=== PATIENT | female | born 1985 | race Caucasian/White ===

== ENCOUNTER 2022-02-26 13:36 | Inpatient (IN) ==
[2022-02-26] MEDS ORDERED: OXYTOCIN 30 UNITS/500 ML BAG IV PRN ×2 (15:28→19:13)
--- NOTE | 2022-02-26 15:28 | History & Physical Report ---
Date of Service February 26, 2022 Assessment & Plan (1) SROM (spontaneous rupture of membranes): Plan: 36 y/o G1 at 40w2d admitted w/ SROM VSS Fetus cat 1 SROM - will let pt ambulate for few hours, recheck. Consider pit if not starting to make some change GBS neg Epidural PRN History of Present Illness Chief Complaint: LOF Primary Care Provider: NO PCP 36 y/o 1 at 40 2/7 wga presents w/ c/o LOF since 11AM. +FM and occ ctx, denies VB PNI: AMA Past [employer] Hx: G1 q25d cycles 07/2021 neg cotest, hx colpo 10 yrs ago denies hx STIs Allergies Allergy/AdvReac Type Severity Reaction Status Date / Time cefaclor [From [facility]] Allergy hives, eye Verified 02/24/22 14:48 swelling Sulfa (Sulfonamide Allergy hives, eye Verified 02/24/22 14:48 Antibiotics) swelling Home Medications Medication Instructions Recorded Confirmed Type prenat.vits,chucky,[id number] 1 tab PO DAILY 07/12/21 02/24/22 History breast pump #1 ea 12/03/21 02/24/22 Rx ferrous sulfate PO 12/17/21 02/24/22 History Patient History Medical History (Updated 02/26/22 @ 15:27 by Sharon Bradley MD) Asthma History of chicken pox Surgical History History of colposcopy S/P tonsillectomy Family History Grandmother (Maternal) Breast cancer Grandfather (Maternal) Dementia Father Diabetes Denies family history of Ovarian cancer Colorectal cancer Social History Smoking Status: Never smoker Hx Alcohol Use: No Preferred Language: Sami Communication Ability: Effective Tso Required: No Beliefs That Will Affect Care: None marital status: Single marital status details: destinee Cyr(42) [phone] Current Living Situation: Significant Other Current Living Situation Comment: lives with peggy, dog current occupational status: employed current occupation: [employer] Other Information That Helps Us Care for You: No Feels Safe at Home: Yes Physical Exam Genitourinary: OB Exam Abdomen: + vertex (confirmed by bsus) and + estimated weight (7-8lbs) Manual OB Exam: + cervical dilation 1 cm, + cervical effacement 50%, + station -2 and + amniotic fluid (amnisure positive) OB Exam Monitor Tracing: + external FHT monitor used, + external uterine monitor used (irreg ctx) and + category I (125/mod/+accel/-decel) Results & Data ([facility]) Vital Signs (Past 12 Hours) Vital Signs Pulse BP 02/26/22 15:04 77 110/74 Laboratory Results OB Labs: Blood Type A Positive 07/19/21 Antibody Screen NEGATIVE 07/19/21 Hemoglobin 10.7 g/dL (12.0-16.0) L 12/03/21 Hematocrit 33.3 % (37-47) L 12/03/21 Mean Corpuscular Volume 84.8 fL (80-100) 07/19/21 Platelet Count 191 K/uL (130-400) 07/19/21 Rubella IgG Antibody Immune (Immune) 07/19/21 Rapid Plasma Reagin Nonreactive (Nonreactive) 07/19/21 Hepatitis B Surface Antigen Neg (Neg) 07/19/21 HIV (1&2) Ab and P24 Ag, 4th Gener Neg (Neg) 07/19/21 Glucose 1 Hour 50 gm Load 103 mg/dl (70-130) 12/03/21 OB Optional Labs: Chlamydia trachomatis RNA Not Detected (Not Detected) 07/19/21 Neisseria gonorrhoeae RNA Not Detected (Not Detected) 07/19/21 Labs Reviewed: cf DNA low risk cf/sma negative msafp declines gbs neg Diagnostic Findings posterior plac Coding Level of Care Code None Diagnoses SROM (spontaneous rupture of membranes)
[2022-02-26 15:57] LABS: Mean Corpuscular Hgb Conc 32.7 g/dL (32-36)
[2022-02-26 16:21] LABS: Hemoglobin 12.1 g/dL (12.0-16.0); Mean Corpuscular Hemoglobin 27.9 pg (25-34); Mean Corpuscular Volume 85.3 fL (80-100); RDW Coefficient of Variation 15.8 % (11.5-14.5); RDW Standard Deviation 49.8 fL (36.4-46.3); Red Blood Count 4.34 M/uL (4.2-5.4)
[2022-02-26 16:24] LABS: Mean Platelet Volume 12.9 fL (7.4-10.4); Platelet Count 133 K/uL (130-400)
[2022-02-26 16:25] LABS: Platelet Estimate Normal (Normal)
--- NOTE | 2022-02-26 19:16 | Labor Progress Brief Note ---
Date of Service February 26, 2022 Subjective Ctx stronger but still far apart Assessment & Plan (1) SROM (spontaneous rupture of membranes): Plan: 36 y/o G1 at 40w2d admitted w/ SROM VSS Fetus cat 1 SROM - SVE unchanged, discussed risks vs benefits of pit and pt amenable. has not really eaten at all today so will allow small meal and start then GBS neg Epidural PRN Admission and Anticipated Discharge Date Admission Date: February 26, 2022 Physical Exam Genitourinary: Manual OB Exam: + cervical dilation 1 cm, + cervical effacement 50% and + station -2 OB Exam Monitor Tracing: + external FHT monitor used, + external uterine monitor used (q4-6) and + category I (125/mod/+accel/-decel) Results & Data ([facility]) Vital Signs (Past 12 Hours) Vital Signs Temp Pulse Resp BP 02/26/22 19:08 79 110/70 02/26/22 18:33 98.2 F 18 02/26/22 18:29 82 135/74 02/26/22 16:03 18 02/26/22 15:04 77 110/74 Coding Level of Care Code None Diagnoses SROM (spontaneous rupture of membranes)
[2022-02-26] MEDS: LACTATED RINGER'S 1,000 ML IV PRN (20:45)
[2022-02-26] MEDS ORDERED: BUPIVACAINE 0.25% 30 ML VIAL ONE (22:19)
[2022-02-26] MEDS ORDERED: SODIUM CHLORIDE 0.9% INJ 10 ML VIAL ONE (22:19)
[2022-02-26] MEDS ORDERED: fentaNYL citrate 100 MCG/2 ML VIAL ONE (22:19)
[2022-02-26] MEDS ORDERED: ePHEDrine sulfate 50 MG/ML AMP ONE (22:19)
[2022-02-26] MEDS ORDERED: fentaNYL 2MCG/ML ROPIVACAINE 1.25MG/ML 100 ML BAG EPI ONE (22:20)
[2022-02-26] MEDS ORDERED: ePHEDrine sulfate 50 MG/ML AMP IV PRN (22:27)
[2022-02-26] MEDS ORDERED: NALBUPHINE HCL INJ 10 MG/ML AMP IV PRN (22:27)
[2022-02-26] MEDS ORDERED: NALOXONE HCL 1 MG in SODIUM CHLORIDE 0.9% 1000ML 1,000 ML IV PRN (22:27)
[2022-02-26] MEDS ORDERED: ONDANSETRON INJ 2 MG/ML 2 ML VIAL IV PRN (22:27)
[2022-02-26] MEDS ORDERED: NALOXONE HCL 0.4 MG/1 ML VIAL/CARP IV PRN (22:27)
[2022-02-26] MEDS ORDERED: fentaNYL 2MCG/ML ROPIVACAINE 1.25MG/ML 100 ML BAG EPI PRN (22:27)
[2022-02-26] MEDS ORDERED: diphenhydrAMINE 50 MG/ML VIAL IV PRN (22:27)
--- NOTE | 2022-02-26 22:28 | Anesthesiology Consultation ---
Date of Service February 26, 2022 Assessment & Plan ASA ASA2 Proposed Anesthesia Anesthesia Type: General and Labor Epidural Risk / Benefits Reviewed With: PT / POA / Parent / Guardian, Accepts Plan and Informed Consent Obtained History Height/Weight Height: 5 ft 4 in Weight: 91.172 kg Allergies Allergy/AdvReac Type Severity Reaction Status Date / Time cefaclor [From [facility]] Allergy hives, eye Verified 02/24/22 14:48 swelling Sulfa (Sulfonamide Allergy hives, eye Verified 02/24/22 14:48 Antibiotics) swelling Medications Home Medications Medication Instructions Recorded Confirmed Last Taken prenat.vits,chucky,[id number] 1 tab PO DAILY 07/12/21 02/26/22 1 Day Ago ~02/25/22 breast pump #1 ea 12/03/21 02/24/22 Unknown ferrous sulfate 27 mg iron tablet 27 mg PO DAILY 02/26/22 02/26/22 02/26/22 0800 Active Medications Generic Name Dose Route Start Last Admin Trade Name Freq PRN Reason Stop Dose Admin Lactated Ringer's 1,000 mls @ 125 mls/hr 02/26/22 15:28 02/26/22 20:45 Lr IV 02/28/22 15:27 125 mls/hr .Q8H PRN Administration L&D Protocol Protocol Oxytocin 30 units in 500 mls @ 4 mls/hr 02/26/22 19:13 02/26/22 21:30 Pitocin IV 02/28/22 19:12 0.24 units/hr .Q24H PRN 4 mls/hr Labor Induction/Augmentation Titration Protocol 0.24 UNITS/HR Past Medical History Medical History (Updated 02/26/22 @ 15:27 by Sharon Bradley MD) Asthma History of chicken pox Exercise / Class Metabolic Activity II 4-5 Yardwork/Stairs/Walk up hill Past Family History Family History Grandmother (Maternal) Breast cancer Grandfather (Maternal) Dementia Father Diabetes Denies family history of Ovarian cancer Colorectal cancer Past Surgical History Surgical History History of colposcopy S/P tonsillectomy Past Anesthesia History No Hx of Anesthesia Complications and No Family Hx of Anesthesia Complications History of PONV No Hx of PONV and No Hx of Motion Sickness Social History Smoking Status: Never smoker Hx Alcohol Use: No Hx Substance Use: No Review of Systems denies fever/cough/ colds/ chest pain/ SOB/ DANITA denies DANITA Physical Exam Vital Signs Last Vital Signs Temp 37.0 C 02/26/22 21:30 Pulse 69 02/26/22 22:55 Resp 18 02/26/22 21:30 BP 99/62 L 02/26/22 22:55 Pulse Ox 97 02/26/22 22:52 ENMT Mouth: no TMJ abnormality and no dentition abnormality Thyromental Distance: > or= 3.5 Finger Breadths Mallampati Class: II Neck neck extension not limited Respiratory normal respiratory effort; no respiratory distress Auscultation: lungs clear to auscultation bilaterally Cardiovascular Rate/Rhythm: regular rate and regular rhythm Neurologic moves all extremities Psychiatric Orientation: alert and oriented x 3 Testing Laboratory Results 02/26/22 15:40
--- NOTE | 2022-02-27 00:44 | Labor Progress Brief Note ---
Date of Service February 27, 2022 Subjective comfortable w/ epidural Assessment & Plan (1) SROM (spontaneous rupture of membranes): Plan: 36 y/o G1 at 40w2d admitted w/ SROM VSS Fetus cat 1 SROM - starting to make progress, cervix thinned out nicely and station has progressed. Pit at 10, continue augmentation GBS neg Epidural in place Admission and Anticipated Discharge Date Admission Date: February 26, 2022 Physical Exam Genitourinary: Manual OB Exam: + cervical dilation (2-3), + cervical effacement 80% and + station -2 (descent noted from prior exam) OB Exam Monitor Tracing: + external FHT monitor used, + external uterine monitor used (q3-4) and + category I (125/mod/+accel/-decel) Results & Data ([facility]) Vital Signs (Past 12 Hours) Vital Signs Temp Pulse Resp BP Pulse Ox 02/27/22 00:37 74 97 02/27/22 00:32 74 97 02/27/22 00:30 71 108/55 L 02/27/22 00:27 72 96 02/27/22 00:22 79 97 02/27/22 00:17 72 96 02/27/22 00:15 75 108/56 L 02/27/22 00:12 83 97 02/27/22 00:07 83 98 02/27/22 00:02 79 97 02/27/22 00:01 75 107/59 L 02/27/22 00:00 18 02/26/22 23:57 72 97 02/26/22 23:52 75 96 02/26/22 23:47 74 128/67 97 02/26/22 23:42 76 97 02/26/22 23:37 78 96 02/26/22 23:32 83 97 02/26/22 23:31 77 112/58 L 02/26/22 23:30 18 02/26/22 23:27 79 97 02/26/22 23:22 82 97 02/26/22 23:17 84 97 02/26/22 23:16 77 116/64 02/26/22 23:12 83 98 02/26/22 23:07 83 97 02/26/22 23:02 79 98 02/26/22 23:00 98.1 F 76 18 103/60 02/26/22 22:57 75 99 02/26/22 22:55 69 99/62 L 02/26/22 22:52 71 97 02/26/22 22:51 74 120/58 L 02/26/22 22:48 75 119/79 02/26/22 22:47 73 99 02/26/22 22:41 80 99 02/26/22 22:36 75 100 02/26/22 22:19 67 118/72 02/26/22 21:48 72 116/68 02/26/22 21:30 98.6 F 18 02/26/22 21:18 77 109/72 02/26/22 20:48 81 116/66 02/26/22 19:08 79 110/70 02/26/22 19:05 97.3 F L 18 02/26/22 18:33 98.2 F 18 02/26/22 18:29 82 135/74 02/26/22 16:03 18 02/26/22 15:04 77 110/74 Coding Level of Care Code None Diagnoses SROM (spontaneous rupture of membranes)
[2022-02-27] MEDS: LACTATED RINGER'S 1,000 ML IV PRN ×3 (01:12→12:14)
[2022-02-27] MEDS ORDERED: SODIUM CHLORIDE 0.9% 250 ML IV PRN (11:59)
[2022-02-27] MEDS ORDERED: GENTAMICIN CONSULT ACTIVE PRN (11:59)
--- NOTE | 2022-02-27 12:11 | Procedure Note ---
Procedure Note Date of Service February 27, 2022 Note Pt was verbally consented for attempt at operative vaginal delivery with vacuum with risks discussed including intracranial and subgaleal hemorrhage, abrasion, retinal hemorrhage. Also discussed risk of bladder, vaginal canal injury. Pt desires to attempt. Bladder was attempted to be emptied however no urine could be drained due to station. head was palpated at +2 station in ROP position. Vacuum was applied at the flexion point and pressure increased to the green zone. With the pt pushing with good effort, vacuum was pulled. This continued with what appears to be good progress each contraction however unable to deliver the head and 3 pop-offs did occur. Given inability to deliver despite multiple contractions, recommended to discontinue vacuum and proceed towards CS. Coding
[2022-02-27] MEDS ORDERED: CITRIC ACID/SODIUM CITRATE 15 ML UDC PO SCH (12:15)
--- NOTE | 2022-02-27 12:16 | Labor Progress Brief Note ---
Date of Service February 27, 2022 Assessment & Plan (1) SROM (spontaneous rupture of membranes): Plan: Discussed discontinuation of vacuum attempt as unable to deliver head over multiple pulls within the green zone and 3 popoffs. As such recommendation for CS due to failed vacuum and arrest of descent, unable to deliver past +2 station even with the vacuum. Pt and verbalized understanding. Discussed indications, risks, benefits, alternatives with risks including infection, bleeding, injury to adjacent structures (bowel, bladder, ureters, blood vessels, nerves, baby), possible need for blood transfusion and/or life saving hysterectomy, VTE. Consent reviewed in detail w/ pt and signed after all questions answered to her satisfaction. Antibiotics ordered, anesthesia made aware Admission and Anticipated Discharge Date Admission Date: February 26, 2022 Results & Data ([facility]) Vital Signs (Past 12 Hours) Vital Signs Temp Pulse Resp BP Pulse Ox 02/27/22 12:09 88 138/70 02/27/22 12:07 84 99 02/27/22 12:02 82 100 02/27/22 11:57 79 100 02/27/22 11:52 85 100 02/27/22 11:50 84 92 02/27/22 11:47 70 100 02/27/22 11:42 72 100 02/27/22 11:37 72 100 02/27/22 11:32 73 100 02/27/22 11:27 79 100 02/27/22 11:22 68 100 02/27/22 11:17 98.4 F 70 100 02/27/22 11:15 20 02/27/22 11:12 65 99 02/27/22 11:07 76 100 02/27/22 11:02 85 100 02/27/22 10:59 24 02/27/22 10:57 73 100 02/27/22 10:52 86 100 02/27/22 10:47 71 100 02/27/22 10:44 24 02/27/22 10:42 101 H 100 02/27/22 10:37 119 H 100 02/27/22 10:30 20 02/27/22 10:25 138 H 78 L 02/27/22 10:22 141 H 96 02/27/22 10:17 85 100 02/27/22 10:15 20 02/27/22 10:13 86 88 L 02/27/22 10:12 79 100 02/27/22 10:08 88 90 02/27/22 10:07 83 100 02/27/22 10:04 57 L 108/57 L 02/27/22 10:02 71 100 02/27/22 10:00 20 02/27/22 09:57 83 100 02/27/22 09:52 85 100 02/27/22 09:47 101 H 100 02/27/22 09:44 24 02/27/22 09:42 75 100 02/27/22 09:37 73 100 02/27/22 09:32 70 100 02/27/22 09:29 24 02/27/22 09:27 69 100 02/27/22 09:22 73 100 02/27/22 09:17 65 100 02/27/22 09:15 24 02/27/22 09:12 72 100 02/27/22 09:07 59 L 100 02/27/22 09:05 78 133/58 L 02/27/22 09:02 81 100 02/27/22 08:59 24 02/27/22 08:57 85 100 02/27/22 08:52 70 100 02/27/22 08:47 71 100 02/27/22 08:45 97.9 F 20 02/27/22 08:44 20 02/27/22 08:42 98 H 100 02/27/22 08:37 73 100 02/27/22 08:35 68 121/58 L 02/27/22 08:32 83 100 02/27/22 08:29 20 02/27/22 08:27 70 100 02/27/22 08:22 71 100 02/27/22 08:17 66 100 02/27/22 08:15 20 02/27/22 08:12 73 100 02/27/22 08:07 65 99 02/27/22 08:05 73 121/72 02/27/22 08:02 65 100 02/27/22 07:57 64 100 02/27/22 07:52 86 99 02/27/22 07:47 98 H 97 02/27/22 07:42 120 H 52 L 02/27/22 07:37 106 H 88 L 02/27/22 07:36 81 92 02/27/22 07:34 86 109/70 02/27/22 07:32 82 99 02/27/22 07:27 85 99 02/27/22 07:22 90 99 02/27/22 07:17 87 100 02/27/22 07:12 102 H 98 02/27/22 07:07 76 99 02/27/22 07:04 65 108/72 02/27/22 07:02 63 100 02/27/22 06:57 61 99 02/27/22 06:52 61 99 02/27/22 06:47 64 99 02/27/22 06:42 61 99 02/27/22 06:37 61 99 02/27/22 06:35 58 L 116/66 02/27/22 06:32 61 100 02/27/22 06:30 18 02/27/22 06:27 66 98 02/27/22 06:22 63 98 02/27/22 06:17 69 97 02/27/22 06:12 70 97 02/27/22 06:07 68 97 02/27/22 06:04 60 108/65 02/27/22 06:02 68 98 02/27/22 05:57 64 97 02/27/22 05:52 67 98 02/27/22 05:47 62 98 02/27/22 05:42 68 98 02/27/22 05:37 76 96 02/27/22 05:34 77 118/71 02/27/22 05:32 65 96 02/27/22 05:27 77 98 02/27/22 05:22 68 99 02/27/22 05:17 66 99 02/27/22 05:12 66 99 02/27/22 05:07 65 99 02/27/22 05:04 64 119/70 02/27/22 05:02 66 99 02/27/22 05:00 18 02/27/22 04:57 61 99 02/27/22 04:52 59 L 99 02/27/22 04:47 64 99 02/27/22 04:42 77 99 02/27/22 04:37 62 99 02/27/22 04:35 60 116/73 02/27/22 04:32 64 99 02/27/22 04:27 72 99 02/27/22 04:22 67 100 02/27/22 04:17 72 97 02/27/22 04:12 64 97 02/27/22 04:07 70 96 0626/22 04:04 64 106/72 02/27/22 04:02 65 97 02/27/22 04:00 97.5 F L 18 02/27/22 03:57 77 97 02/27/22 03:52 68 96 02/27/22 03:47 77 96 02/27/22 03:42 81 98 02/27/22 03:37 68 99 02/27/22 03:35 55 L 116/70 02/27/22 03:32 66 99 02/27/22 03:27 65 98 02/27/22 03:22 61 99 02/27/22 03:17 63 99 02/27/22 03:12 69 100 02/27/22 03:07 74 96 02/27/22 03:04 59 L 102/60 02/27/22 03:02 66 97 02/27/22 02:57 71 97 02/27/22 02:52 62 97 02/27/22 02:47 62 97 02/27/22 02:43 66 110/57 L 02/27/22 02:42 69 97 02/27/22 02:37 60 96 02/27/22 02:32 63 97 02/27/22 02:27 63 97 02/27/22 02:22 65 96 02/27/22 02:17 64 96 02/27/22 02:12 60 96 02/27/22 02:07 63 96 02/27/22 02:04 61 111/68 02/27/22 02:02 62 96 02/27/22 02:00 98.2 F 16 02/27/22 01:57 62 96 02/27/22 01:52 61 96 02/27/22 01:47 63 96 02/27/22 01:42 64 96 02/27/22 01:37 63 96 02/27/22 01:32 63 96 02/27/22 01:30 63 109/69 02/27/22 01:27 63 96 02/27/22 01:22 65 96 02/27/22 01:17 62 96 02/27/22 01:15 60 111/69 02/27/22 01:12 64 97 02/27/22 01:07 64 96 02/27/22 01:02 62 97 02/27/22 01:01 63 117/73 02/27/22 00:57 66 97 02/27/22 00:52 71 97 02/27/22 00:47 78 97 02/27/22 00:45 73 102/68 02/27/22 00:42 67 97 02/27/22 00:37 74 97 02/27/22 00:32 74 97 02/27/22 00:30 71 18 108/55 L 02/27/22 00:27 72 96 02/27/22 00:22 79 97 02/27/22 00:17 72 96 02/27/22 00:15 75 108/56 L 02/27/22 00:12 83 97 Coding Level of Care Code None Diagnoses SROM (spontaneous rupture of membranes)
[2022-02-27] MEDS ORDERED: LIDOCAINE 2%/EPINEPHRINE 1:200,000 20 ML SDV ONE (12:24)
[2022-02-27] MEDS ORDERED: fentaNYL citrate 100 MCG/2 ML VIAL ONE (12:24)
[2022-02-27] MEDS ORDERED: GENTAMICIN SULFATE 440 MG in DEXTROSE 5% 100 ML IV SCH (12:30)
[2022-02-27] MEDS ORDERED: CLINDAMYCIN/D5W 900 MG/50 ML BAG IV ONE (12:30)
[2022-02-27] MEDS ORDERED: AZITHROMYCIN 500 MG in DEXTROSE 5% 250 ML IV SCH (13:00)
[2022-02-27] MEDS ORDERED: METHYLERGONOVINE MALEATE 0.2 MG/ML AMP ONE (13:07)
[2022-02-27] MEDS ORDERED: OXYTOCIN 10 UNITS/ML 10ML VIAL ONE ×2 (13:11→13:22)
[2022-02-27] MEDS ORDERED: MoRPHine SULFATE PF 1 MG/ML 10 ML AMP/VIAL ONE (13:14)
[2022-02-27] MEDS ORDERED: ONDANSETRON INJ 2 MG/ML 2 ML VIAL ONE (13:19)
[2022-02-27] MEDS ORDERED: DEXAMETHASONE SOD INJ 4 MG/ML VIAL ONE (13:20)
[2022-02-27] MEDS ORDERED: SODIUM CHLORIDE 0.9% 1000ML 1,000 ML IV SCH (13:30)
[2022-02-27] MEDS ORDERED: diphenhydrAMINE 50 MG/ML VIAL IV PRN (13:30)
[2022-02-27] MEDS ORDERED: NALBUPHINE HCL INJ 10 MG/ML AMP IV PRN (13:30)
[2022-02-27] MEDS ORDERED: LACTATED RINGER'S 500 ML IV PRN (13:30)
[2022-02-27] MEDS ORDERED: PROMETHAZINE HCL 25 MG in SODIUM CHLORIDE 0.9% 50 ML IV PRN (13:30)
[2022-02-27] MEDS ORDERED: MoRPHine SULFATE PF 1 MG/ML 10 ML AMP/VIAL EPI ONE (13:30)
[2022-02-27] MEDS ORDERED: KETOROLAC 30 MG/ML VIAL IV PRN (13:30)
[2022-02-27] MEDS ORDERED: NALOXONE HCL 0.08 MG in SYRINGE 1.8 ML IV PRN (13:30)
[2022-02-27] MEDS ORDERED: NO NARCOTICS OR SEDATIVES SCH (13:30)
[2022-02-27] MEDS ORDERED: ePHEDrine sulfate 50 MG/ML AMP IV PRN (13:30)
[2022-02-27] MEDS ORDERED: NALOXONE HCL 1 MG in SODIUM CHLORIDE 0.9% 1000ML 1,000 ML IV PRN (13:30)
[2022-02-27] MEDS ORDERED: NALOXONE HCL 0.4 MG/1 ML VIAL/CARP IV PRN (13:30)
[2022-02-27] MEDS ORDERED: ONDANSETRON INJ 2 MG/ML 2 ML VIAL IV PRN (13:30)
[2022-02-27] MEDS ORDERED: METHYLENE BLUE 0.5% 10 ML VIAL ONE (13:36)
[2022-02-27] MEDS ORDERED: MIDAZOLAM HCL 1 MG/ML 2ML VIAL ONE (13:52)
[2022-02-27 14:27] LABS: Base Excess Cord Venous Blood -11.7 mEq/L (-7.7-1.9); Cord Venous Blood HCO3 19 mmol/L (18.4-26.8); Cord Venous Blood PCO2 61 mmHg (30.4-57.2); Cord Venous Blood PO2 16 mmHg (14.1-43.3); O2 Saturation Cord Venous Bld < 60.0 % (<68)
[2022-02-27 14:28] LABS: Base Excess Cord Arterial Bld -14.1 mEq/L (-9-1.8); CO2 Cord Arterial Blood 74 mmHg (39.1-73.5); HCO3 Cord Arterial Blood 19 mmol/L (19.7-28.5); Oxygen Sat Cord Arterial Blood < 60.0 % (<60); PO2 Cord Arterial Blood 11 mmHg (4.1-31.7); pH Cord Arterial Blood 7.01 (7.1-7.38)
--- NOTE | 2022-02-27 15:11 | Communication Note ---
Date of Service: February 27, 2022 Note: I was called to L&D from home to assist with a section on this patient for the indication of failure to descend and failed vacuum-assisted va ginal delivery. On my arrival the patient was still in L&D room and about to be moved to the OR, however another patient of our practice admitted on L&D was simultaneously completely dilated and involuntarily pushing. The decision was made by the assembled team to have Dr. Bradley take this patient to the OR with Dr. García to assist her, while I stayed with the other patient of our practice to push and presumably deliver vaginally. Once I had completed the necessary care of the other patient, I joined Drs. Bradley and Ricky in the OR, at the point where they were repairing the uterus. The infant had already been removed from the OR. We worked as a team of three until the point where the fascial closure was beginning, at which point Dr. García left the OR. See operative report for further details.
--- NOTE | 2022-02-27 15:21 | Anesthesia Procedure Note ---
Date of Service February 27, 2022 Anesthesia Post Epidural Note Vital Signs Vital Signs: Temp Pulse Resp BP Pulse Ox 36.9 C 83 20 103/70 100 02/27/22 11:17 02/27/22 15:20 02/27/22 11:15 02/27/22 15:11 02/27/22 15:15 Pain Intensity Bilateral Lower Abdomen: Pain Intensity: 0 Notes Mental Status: alert / awake / arousable Nausea / Vomiting: adequately controlled Pain: adequately controlled Airway Patency, RR, SpO2: stable & adequate BP & HR: stable & adequate Hydration State: stable & adequate Neuraxial Anesthesia: was administered and sensory block is resolving Anesthetic Complications: no major complications apparent Epidural: Removed without complications and With tip intact
[2022-02-27 15:37] LABS: Basophils # (auto) 0.01 K/uL (0-0.2); Basophils % (auto) 0.1 %; Eosinophils # (auto) 0.02 K/uL (0-0.5); Eosinophils % (auto) 0.1 %; Hemoglobin 12.2 g/dL (12.0-16.0); Immature Granulocytes # (auto) 0.06 K/uL (0.00-0.02); Immature Granulocytes % (auto) 0.3 %; Lymphocytes # (auto) 0.84 K/uL (1.2-3.4); Lymphocytes % (auto) 4.5 %; Mean Corpuscular Hemoglobin 27.1 pg (25-34); Mean Corpuscular Volume 84.4 fL (80-100); Monocytes # (auto) 0.59 K/uL (0.11-0.59); Monocytes % (auto) 3.2 %; Neutrophils # (auto) 17.16 K/uL (1.4-6.5); Neutrophils % (auto) 91.8 %; Platelet Count 144 K/uL (130-400); RDW Standard Deviation 49.4 fL (36.4-46.3); White Blood Count 18.68 K/uL (4.8-10.8)
[2022-02-27 15:39] LABS: Mean Corpuscular Hgb Conc 32.1 g/dL (32-36)
--- NOTE | 2022-02-27 15:58 | Operative Report ---
PG Post Operative Report Pre & Post Diagnosis Operation Date: 02/27/22 12:30 Pre-Op Diagnosis: Single intrauterine at 40 weeks and 3 days Spontaneous rupture membranes Arrest of descent Failed vacuum Post-Op Diagnosis: Single intrauterine at 40 weeks and 3 days Spontaneous rupture membranes Arrest of descent Failed vacuum Uterine rupture in the lower uterine segment Delivered I identified the patient and participated in the time-out.: Yes Procedure Operation Date: 02/27/22 12:30 Actual Procedures p Primary Section in LD with result of live female child at 1301, Repair of Uterine Rupture - Sharon Bradley MD Surgeon Sharon Bradley MD Rate Marker MD Ricky; MD Stephanie Estimated Blood Loss 1,200 Findings Consistent with Post-Op Diagnosis Viable female with APGARs of 2 and 8 at 1 and 5 minutes, respectively. torso was noted to be in abdomen consistent with uterine rupture upon entry into the peritoneum. Lower uterine segment was ruptured across the width of the anterior uterus and with extensions inferiorly bilaterally beyond the level of the cervix. Bladder was intact and confirmed with backfilling through the harvey catheter. Normal appearing fallopian tubes and ovaries bilaterally. Specimens cord blood, cord gases, placenta Drains Harvey draining bloody and methylene blue stained urine Anesthesia Type L&D Only Epidural Exists Complications Uterine rupture Disposition Accompanied Patient To Recovery: Yes Disposition: L&D Indications 36-year-old G1 at 40 weeks and 3 days presented 1 day ago with complaints of spontaneous rupture of membranes. She was expectantly managed for approximately 4 hours however did not make any cervical change and so was started on Pitocin. She received an epidural for pain control and continue to progress with Pitocin augmentation until approximately 9 cm at which point decels were noted. P itocin was discontinued and fetus recovered, Pitocin was restarted however had to be discontinued again due to another decel. Despite Pitocin discontinuation, patient continued to progress until she was 10 cm and desired push. The patient had good progress in her pushing and was able to push the head until +2 station. It was difficult for her to make progress beyond +2 station and so she tried pushing in a variety of positions. At one point during repositioning, she did become painful again but gained some relief with pushing epidural button. Category 2 tracing was noted throughout pushing however had appropriate recovery and still had moderate variability throughout this time as well. The patient pushed for approximately 3 hours in total, unable to push beyond +2 station and was becoming very tired. She was counseled regarding vacuum attempt due to maternal exhaustion and desire to proceed after informed consent was obtained. There was good progress during her pushing efforts and vacuum pulls, however head could not be delivered before 3 pop offs and so vacuum was discontinued. heart rate was unchanged during this time. She was counseled for recommendation for section at this time, consents reviewed and signed after all questions answered to apparent satisfaction. Description of Procedure The patient was taken to the operating room after consents were ensured. The patient was properly identified. Epidural anesthesia was bolused without difficulty. The patient was placed in a dorsal supine position with left lateral tilt, then prepped and draped in normal sterile fashion. Surgical time out was performed. Antibiotics were given for prophylaxis. Anesthesia was tested to ensure adequate surgical levels. Pfannenstiel skin incision was performed and carried down to the underlying fascia with a knife. The fascia was then nicked in the midline and extended laterally with pickups and Alonzo scissors. Superior portion of the fascia was grasped with Kochers x2 and elevated off the underlying rectus muscles using blunt dissection. Inferior portion of the fascia was then grasped with Yunior clamps x2 and also elevated off the underlying muscles with blunt dissection. Midline was identified. The peritoneum was then entered and extended to provide adequate room for delivery of baby. Upon entry into the peritoneum, there was thought to be abnormal appearing bruised area of uterus. Bladder was noted to be inferior to this and appeared intact. Upon further palpation of this abnorm al tissue superiorly, the superior aspect of the uterus was palpated well above what was thought to be the bruised area. A thin layer of the suspected serosa was then realized to be what the bruised area was and that it was meconium beneath it. This thin layer of serosa was entered bluntly and parts were identified in the abdomen consistent with uterine rupture. Hand was inserted into the ruptured lower uterine segment along the torso in order to identify the head. The operators hand was unable to grasp and elevate the head due to its position and so the library circulation assistant attempted and was able to grasp and elevate the head in an atraumatic fashion and deliver the remainder of the body without incident. Nose and mouth were bulb suctioned on the surgical field. The cord was double clamped and cut, baby was handed off to awaiting pediatrics staff. Cord segment, gases, and blood were obtained. Placenta was then manually extracted from the uterus. The uterus was exteriorized. Several passes were made inside the uterus to remove the remaining membranes. Ring forceps and T clamps were used to identify the superior and inferior aspects of the uterine myometrium that had ruptured with care to avoid the identified cervix. The rupture appeared to have occurred in the lower uterine segment and extended inferiorly bilaterally. Bladder flap was identified and appeared to be well inferior to the rupture itself. 0 Vicryl on a CTX needle was used to initiate the repair of the rupture in a running locked fashion beginning at the right aspect of the extension and meeting the left aspect of the rupture extension. Prior to complete closure of the hysterotomy, an library circulation assistant's hand was inserted into the vagina and the operators finger was inserted through the cervical canal to ensure patency. Remainder of hysterotomy was then closed after yard motor operator's glove was changed. Methergine was administered to aid with uterine atony. Approximately 2 cm medial to the left corner of the rupture, a separate inferior extension was noted and repaired separately in a running locked fashion using 0 Vicryl again. At this time, continued bleeding was noted at the right most lateral aspect of the rupture. An additional running locked 0 Vicryl suture was used to secure this bleeding and the vessel just posteriorly to it that was bleeding. There was then excellent hemostasis. Floseal was applied to this right aspect of the extension. The remainder of the repaired hysterotomy was noted to have excellent hemostasis as well. The posterior cul-de-sac was then inspected and cleaned of clot and debris. The hysterotomy was again inspected and noted to be hemostatic. The uterus was returned to the abdomen. Rebeka was applied to the hysterotomy. Bladder was then backfilled with methylene blue stained water and bladder was noted to be intact and no leakage of methylene blue was seen in the abdomen. Bladder was then drained. The hysterotomy was again noted to be hemostatic. Space of Retzius was noted to be hemostatic. The fascia was then closed with a running suture of 0 Vicryl on a CT1 needle. Subcutaneous tissue was copiously irrigated and noted to be hemostatic. Subcutaneous tissue was re-approximated. The skin was then closed with a running suture of 3-0 Monocryl in a subcuticular fashion. At termination of the procedure, the fundal pressure was applied and a moderate amount of lochia was expressed. Pressure dressing was applied to the patient. She tolerated the procedure well. All sponge, needle, instrument counts were correct x 2. I attest to the content of the Intraoperative Record and any orders documented therein. Any exceptions are noted below. OB Procedure Charges 49575
[2022-02-27 16:03] LABS: Fibrinogen 530 mg/dl (184-400); INR 0.9 (0.9-1.1); Partial Thromboplastin Time 27.9 Seconds (21.0-31.0); Prothrombin Time 9.8 Seconds (9.0-12.0)
[2022-02-27] MEDS ORDERED: LACTATED RINGER'S 1,000 ML IV SCH (16:17)
[2022-02-27] MEDS ORDERED: OXYTOCIN 20 UNITS in LACTATED RINGER'S 1,000 ML IV SCH (16:17)
[2022-02-27] MEDS ORDERED: BENZOCAINE 20% AER SPR 82.5 GM CAN EXT PRN (16:17)
[2022-02-27] MEDS ORDERED: DIPHTHERIA/TETANUS/PERTUSSIS 0.5 ML SYR/VIAL IM ONE (16:17)
[2022-02-27] MEDS ORDERED: HYDROCORTISONE ACETATE 25 MG SUPP PR PRN (16:17)
[2022-02-27] MEDS ORDERED: MAGNESIUM HYDROXIDE SUSP 30 ML UDC PO PRN (16:17)
[2022-02-27] MEDS ORDERED: SENNA 8.6 MG TAB PO PRN (16:17)
[2022-02-27 21:19] LABS: Mean Corpuscular Hgb Conc 32.4 g/dL (32-36)
[2022-02-27 21:25] LABS: Hematocrit (blood only) 31.5 % (37-47); Hemoglobin 10.2 g/dL (12.0-16.0); Mean Corpuscular Hemoglobin 27.3 pg (25-34); Mean Corpuscular Volume 84.2 fL (80-100); RDW Standard Deviation 49.1 fL (36.4-46.3); Red Blood Count 3.74 M/uL (4.2-5.4); White Blood Count 18.06 K/uL (4.8-10.8)
[2022-02-27 21:34] LABS: Mean Platelet Volume 12.8 fL (7.4-10.4); Platelet Count 132 K/uL (130-400)
[2022-02-27] MEDS: SIMETHICONE 80 MG CHEW PO SCH (22:22)
[2022-02-27] MEDS: DOCUSATE SODIUM 100 MG CAP PO SCH (22:22)
[2022-02-28 06:03] LABS: Hematocrit (blood only) 27.1 % (37-47); Hemoglobin 8.8 g/dL (12.0-16.0); Mean Corpuscular Hemoglobin 27.3 pg (25-34); Mean Corpuscular Hgb Conc 32.5 g/dL (32-36); Mean Corpuscular Volume 84.2 fL (80-100); Mean Platelet Volume 12.8 fL (7.4-10.4); Platelet Count 131 K/uL (130-400); RDW Coefficient of Variation 16.2 % (11.5-14.5); RDW Standard Deviation 50.1 fL (36.4-46.3); Red Blood Count 3.22 M/uL (4.2-5.4); White Blood Count 15.05 K/uL (4.8-10.8)
[2022-02-28 06:30] LABS: ALC (manual) 1.17 K/uL (1.2-3.4); ANC (manual) 13.61 K/uL (1.4-6.5); Eosinophils # (manual) 0.14 K/uL (0-0.5); Eosinophils % (manual) 0.9 %; Lymphocytes # (manual) 1.17 K/uL (1.2-3.4); Lymphocytes % (manual) 7.8 %; Monocytes # (manual) 0.14 K/uL (0.11-0.59); Monocytes % (manual) 0.9 %; Neutrophils # (manual) 13.61 K/uL (1.4-6.5); Neutrophils % (manual) 90.4 %
--- NOTE | 2022-02-28 07:14 | Obstetrical Progress Note ---
Date of Service February 28, 2022 Assessment & Plan (1) Encounter for care and examination after delivery: Plan: Patient is a 36-year-old now G1, P1 female who delivered via , postop day 1. complicated by advanced maternal age. Patient experienced spontaneous uterine rupture requiring urgent delivery. -Continue routine care -Hemoglobin 8.8 this morning, continue to monitor -Pain for the most part controlled today, continue pain control with Tylenol, ibuprofen, Percocet as needed -GBS negative, A+ blood, antibody negative -Encouraged ambulation later today -Voiding trial later today -Encourage breast-feeding -Recommend 1 week follow-up appointment with Dr. Bradley -Routine 6-week check with Dr. Bradley Admission and Anticipated Discharge Date Admission Date: February 26, 2022 Supervising Physician Co-Signing Physician Notes Resident Physician Supervision Note: I was present with Dr. Fierro during the history and exam. I discussed the case with the resident and agree with the findings and plan as documented in the note. Any exceptions or clarifications are listed here: POD1 s/p primary CS c/b uterine rupture. Overall, abd pain is controlled, lochia appropriate. Harvey draining clear urine, good UOP. Not yet passing gas. H/H has remained stable, iron ordered. Dressing is without additional shadowing, intact. Questions answered this AM, see additional note for details. Having intermittent tailbone pain, discussed heat/ice and will get pillow for it. Continue routine pp care, remove harvey this AM and encourage ambulation Documented By: Sharon Bradley MD Subjective Patient is a 36-year-old now female who delivered via postop day 1. complicated by advanced maternal age. Patient experienced uterine rupture spontaneously without any risk factors. Overall doing well. Has multiple questions regarding the future of her in terms of future childbearing. Answered questions to the best of my and Dr. Bradley's ability. Due to her operation yesterday, patient has not been able to ambulate and still has a Harvey catheter in. Patient is urinating clear, straw-colored urine. Has passed some gas. Lochia moderate. Patient is attempting breast-feeding and baby is latching but sucking too much. Pain overall doing okay but is having some sacral pain that is intermittent and sharp. Patient denies fever, chills, chest pain, shortness of breath, or headache. Otherwise no other complaints at this time. Review of Systems Review of Systems: All systems reviewed & are unremarkable except as noted in HPI & below Physical Exam Constitutional: WD/WN, vitals as above Eyes: + anicteric sclerae Neck: normal visual inspection Respiratory: normal respiratory effort, lungs clear to auscultation Cardiovascular: RRR, no murmur, no edema Gastrointestinal (Abdomen): normal bowel sounds, soft, nontender, no hepatosplenomegaly Musculoskeletal: Head/Neck/Chest: normocephalic and head atraumatic Skin: no rashes, warm and dry There is a dry, healing surgical incision at the inferior abdomen. Neurologic: moves all extremities Psychiatric: A+Ox3, euthymic affect Genitourinary: Uterus fundus palpated at the level of the umbilicus, firm Results & Data ([facility]) Vital Signs (Past 12 Hours) Vital Signs Temp Pulse Pulse Resp BP BP Pulse Ox 02/28/22 05:00 18 97 02/28/22 04:25 18 98 02/28/22 03:04 16 97 02/28/22 02:10 16 97 02/28/22 01:00 16 98 02/28/22 00:40 36.9 C 79 16 99/63 L 98 02/28/22 00:05 16 99 02/27/22 23:15 18 97 02/27/22 22:28 36.6 C 80 16 104/63 99 02/27/22 21:45 81 100 02/27/22 21:40 91 H 99 02/27/22 21:35 85 99 02/27/22 21:30 86 99 02/27/22 21:25 78 98 02/27/22 21:20 81 98 02/27/22 21:15 80 98 02/27/22 21:10 80 99 02/27/22 21:05 84 96 02/27/22 21:00 92 H 97 02/27/22 20:55 76 98 02/27/22 20:50 76 100 02/27/22 20:45 79 100 02/27/22 20:40 81 99 02/27/22 20:35 78 97 02/27/22 20:30 80 99 02/27/22 20:25 88 99 02/27/22 20:20 83 98 02/27/22 20:15 84 100 02/27/22 20:10 106 H 97 02/27/22 20:05 87 98 02/27/22 20:00 37.0 C 82 76 18 102/64 98 02/27/22 19:55 82 98 02/27/22 19:50 84 98 02/27/22 19:45 80 99 02/27/22 19:40 89 98 02/27/22 19:35 84 98 02/27/22 19:30 76 98 02/27/22 19:25 80 98 02/27/22 19:20 81 100 02/27/22 19:18 75 102/66 02/27/22 19:15 75 98 02/27/22 19:10 81 99 02/27/22 19:05 79 99 02/27/22 19:00 76 98 02/27/22 18:55 80 99 02/27/22 18:50 94 H 100 02/27/22 18:45 77 99 02/27/22 18:40 87 100 02/27/22 18:35 82 100 02/27/22 18:30 36.6 C 80 16 100 02/27/22 18:25 82 99 02/27/22 18:20 92 H 99 02/27/22 18:15 85 99 Pulse Ox 02/28/22 05:00 02/28/22 04:25 02/28/22 03:04 02/28/22 02:10 02/28/22 01:00 02/28/22 00:40 02/28/22 00:05 02/27/22 23:15 02/27/22 22:28 99 02/27/22 21:45 02/27/22 21:40 02/27/22 21:35 02/27/22 21:30 02/27/22 21:25 02/27/22 21:20 02/27/22 21:15 02/27/22 21:10 02/27/22 21:05 02/27/22 21:00 02/27/22 20:55 02/27/22 20:50 02/27/22 20:45 02/27/22 20:40 02/27/22 20:35 02/27/22 20:30 02/27/22 20:25 02/27/22 20:20 02/27/22 20:15 02/27/22 20:10 02/27/22 20:05 02/27/22 20:00 02/27/22 19:55 02/27/22 19:50 02/27/22 19:45 02/27/22 19:40 02/27/22 19:35 02/27/22 19:30 02/27/22 19:25 02/27/22 19:20 02/27/22 19:18 02/27/22 19:15 02/27/22 19:10 02/27/22 19:05 02/27/22 19:00 02/27/22 18:55 02/27/22 18:50 02/27/22 18:45 02/27/22 18:40 02/27/22 18:35 02/27/22 18:30 02/27/22 18:25 02/27/22 18:20 02/27/22 18:15
--- NOTE | 2022-02-28 07:27 | Communication Note ---
Date of Service: February 28, 2022 Met with pt and multiple times last evening to review events of the delivery. Reviewed that upon entry into the abdomen, uterine rupture was identi fied and myself with colleagues were able to safely repair the uterus and leave in situ and confirm that bladder was without injury. Reviewed her antepartum course with the pt and her that there were no obvious signs that a rupture had occurred by heart rate tracing, vaginal bleeding, or loss of station. Pt did note some pain after repositioning during pushing however reviewed that that in itself can be seen during pushing and was not necessarily an indicator on its own that the rupture had occurred. Discussed that the rupture is likely why the vacuum, despite making good efforts, was unsuccessful. Reviewed incidence of spontaneous uterine rupture in someone without known risk factors. Ample time was given for questions throughout this process and they were answered to apparent satisfaction. I reviewed anticipated course with the patient this morning. CBC has remained stable so transfusion not indicated at this time. We briefly touched on future pregnancies as pt and her were desiring of more children in the future. Discussed the high risk for potential recurrence, though limited data notes it can be seen anywhere from 22-100%. Reviewed if desiring future pregnancies would rec at least an 18 mo interpregnancy interval and maternal medicine preconception counseling. Reviewed there are no good protocols to assess whether her uterus has "adequately" healed as there is not a specific measurement of myometrial thickness that necessarily correlates with rupture risk at this time. Future deliveres would be by repeat and at an earlier GA to avoid laboring, however noted that there have been rupture prior to this earlier GA as well. Pt verbalized understanding. Answered questions to the best of my ability. Will have pt return in 1 wk to the office for close f/u, task sent.
[2022-02-28] MEDS ORDERED: PROMETHAZINE HCL 25 MG in SODIUM CHLORIDE 0.9% 50 ML IV PRN (07:31)
[2022-02-28] MEDS ORDERED: ONDANSETRON INJ 2 MG/ML 2 ML VIAL IV PRN (07:31)
[2022-02-28] MEDS ORDERED: diphenhydrAMINE Capsule 25 MG CAP PO PRN (07:31)
[2022-02-28] MEDS ORDERED: diphenhydrAMINE 50 MG/ML VIAL IV PRN (07:31)
[2022-02-28] MEDS: DOCUSATE SODIUM 100 MG CAP PO SCH ×2 (07:36→20:09)
[2022-02-28] MEDS: FERROUS SULFATE 325 MG TAB PO SCH (07:36)
[2022-02-28] MEDS: PRENATAL VITAMIN 1 TAB PO SCH (07:36)
[2022-02-28] MEDS: SIMETHICONE 80 MG CHEW PO SCH ×4 (07:36→20:09)
[2022-02-28] MEDS: oxyCODONE/ACETAMINOPHEN 5mg/325mg TAB PO PRN ×3 (12:16→20:10)
--- NOTE | 2022-02-28 13:06 | Ultrasound Report ---
BILATERAL LOWER EXTREMITY VENOUS DOPPLER CLINICAL HISTORY: Lower extremity pain and swelling. COMPARISON STUDY: No previous studies for comparison. TECHNIQUE: Sonography of the deep venous system of the bilateral lower extremities was performed. Co mpression and augmentation were evaluated. FINDINGS: The bilateral common femoral, superficial femoral and popliteal veins were compressible. A ugmentation was normal. Flow was shown within the deep calf vessels. IMPRESSION: No evidence of deep venous thrombus within the bilateral lower extremities. ACT 112: Negative or not required by law. Electronically signed by: Mathew Earl M.D. 02/28/2022 1:05 PM
[2022-02-28] MEDS: IBUPROFEN 600 MG TAB PO PRN ×2 (15:30→20:11)
[2022-02-28] MEDS ORDERED: bisacodyL 5 MG TABEC PO SCH (20:00)
--- NOTE | 2022-03-01 05:22 | Obstetrical Progress Note ---
Date of Service March 01, 2022 Assessment & Plan (1) Encounter for care and examination after delivery: Plan: Patient is a 36-year-old now G1, P1 female who delivered via , postop day 2. complicated by advanced maternal age. Patient experienced spontaneous uterine rupture requiring urgent delivery. -Continue routine care -Hemoglobin 8.8 on 02/28 -Pain controlled today, continue pain control with ibuprofen and Percocet as n eeded -GBS negative, A+ blood, antibody negative -Encouraged ambulation later today after Franklin removed -Reattempt voiding trial later today -Encouraged breast-feeding -Recommend 1 week follow-up appointment with Dr. Bradley -Routine 6-week check with Dr. Bradley Admission and Anticipated Discharge Date Admission Date: February 26, 2022 Supervising Physician Co-Signing Physician Notes Resident Physician Supervision Note: I interviewed and examined the patient. Discussed with Dr. Fierro and agree with findings and plan as documented in the note. Any exceptions or clarifications are listed here: Patient recovering well at this point. Bruising to L calf likely from pushing and positioning; DVT r/o yesterday by doppler US. Pain well controlled. Occasional sharp, sudden, and quickly-resolving unprovoked abdomino-pelvic pain that may be r/t gas or peritoneal irritation; think less likely tailbone fx as pain does NOT occur when patient is up and ambulating, mostly happens when resting in bed and with no apparent cause. Franklin overnight due to urinary retention yesterday; will repeat TOV today. Documented By: Chasity Brown MD, FACOG Subjective Patient is a 36-year-old now female who delivered via postop day 2. complicated by advanced maternal age. Patient experienced uterine rupture spontaneously without any risk factors. Patient attempted a voiding trial yesterday, but was unable to pass urine on her own. Because of this, a Franklin catheter was reinserted. Patient is urinating clear, straw-colored urine and is having good output Has passed some gas. Lochia moderate and improving Patient is attempting breast-feeding and baby is latching well. Pain overall doing okay but is having some sacral pain that is intermittent and sharp that does not seem to be associated with movement and seems random, but short-lived. Otherwise patient is not having any pain. Patient denies fever, chills, chest pain, shortness of breath, or headache. Otherwise no other complaints at this time. Review of Systems Review of Systems: All systems reviewed & are unremarkable except as noted in HPI & below Physical Exam Constitutional: WD/WN, vitals as above Eyes: + anicteric sclerae Neck: normal visual inspection Respiratory: normal respiratory effort, lungs clear to auscultation Cardiovascular: RRR, no murmur, no edema Gastrointestinal (Abdomen): normal bowel sounds, soft, nontender, no hepatosplenomegaly Musculoskeletal: Head/Neck/Chest: normocephalic and head atraumatic Skin: no rashes, warm and dry Neurologic: moves all extremities Psychiatric: A+Ox3, euthymic affect Genitourinary: Uterine fundus palpated 1 cm below the umbilicus, firm Results & Data ([facility]) Vital Signs (Past 12 Hours) Vital Signs Temp Pulse Resp BP Pulse Ox 02/28/22 23:10 36.5 C 94 H 17 97/62 L 96 02/28/22 19:55 36.6 C 97 H 16 98/60 L 98
[2022-03-01] MEDS: DOCUSATE SODIUM 100 MG CAP PO SCH ×2 (08:33→21:45)
[2022-03-01] MEDS: FERROUS SULFATE 325 MG TAB PO SCH (08:33)
[2022-03-01] MEDS: IBUPROFEN 600 MG TAB PO PRN ×4 (08:34→23:52)
[2022-03-01] MEDS: SIMETHICONE 80 MG CHEW PO SCH ×4 (08:34→21:45)
[2022-03-01] MEDS: PRENATAL VITAMIN 1 TAB PO SCH (08:34)
[2022-03-01] MEDS: oxyCODONE/ACETAMINOPHEN 5mg/325mg TAB PO PRN ×4 (08:35→23:51)
[2022-03-01] MEDS ORDERED: bisacodyL 10 MG SUPP PR PRN (15:35)
[2022-03-02] MEDS: oxyCODONE/ACETAMINOPHEN 5mg/325mg TAB PO PRN ×4 (04:25→20:36)
[2022-03-02] MEDS: IBUPROFEN 600 MG TAB PO PRN ×4 (04:25→20:37)
[2022-03-02] MEDS: SIMETHICONE 80 MG CHEW PO SCH ×5 (07:21→20:36)
--- NOTE | 2022-03-02 08:02 | Obstetrical Progress Note ---
Date of Service March 02, 2022 Assessment & Plan (1) Encounter for care and examination after delivery: (2) Urinary retention: stable routine care. given time of harvey replacement, plan removal tomorrow am. if fails voiding trial tomorrow, rec leg bag and trial in office as outpt in 3-7d. reviewed with patient. enc her to ambulate more, with appropriate pain meds. scd use while in bed encouraged. hgb last checked stable. Day #:: 3 Subjective Ambulation: ambulating normally Voiding: harvey catheter in place Diet Tolerance:: regular diet Lochia:: Small Feeding Type:: breast feeding concerned about her bladder and incisional pain with ambulation. the pain meds helped. Constitutional: + as per Subjective / HPI Physical Exam Constitutional WD/WN, vitals as above Respiratory normal respiratory effort, lungs clear to auscultation Cardiovascular Rate/Rhythm: regular rate and regular rhythm Gastrointestinal (Abdomen) Inspection/Auscultation: abdomen normal to inspection and + abdominal surgical incision (c/d/i) Percussion/Palpation: + abdomen tender (mild appropriate tenderness) and abdomen soft Fundus firm 2cm down Musculoskeletal nt calves no edema Neurologic grossly normal Psychiatric A+Ox3, euthymic affect Results & Data ([facility]) Vital Signs (Past 12 Hours) Vital Signs Temp Pulse Resp BP Pulse Ox 03/02/22 07:49 97.9 F 87 20 103/69 99 03/01/22 23:55 97.7 F 82 17 103/63 99
[2022-03-02] MEDS: DOCUSATE SODIUM 100 MG CAP PO SCH ×2 (09:30→20:36)
[2022-03-02] MEDS: FERROUS SULFATE 325 MG TAB PO SCH (09:30)
[2022-03-02] MEDS: PRENATAL VITAMIN 1 TAB PO SCH (09:30)
[2022-03-03] MEDS: oxyCODONE/ACETAMINOPHEN 5mg/325mg TAB PO PRN ×3 (01:22→11:57)
[2022-03-03] MEDS: IBUPROFEN 600 MG TAB PO PRN ×3 (01:23→11:56)
[2022-03-03] MEDS: PRENATAL VITAMIN 1 TAB PO SCH (08:24)
[2022-03-03] MEDS: DOCUSATE SODIUM 100 MG CAP PO SCH (08:24)
[2022-03-03] MEDS: FERROUS SULFATE 325 MG TAB PO SCH (08:24)
[2022-03-03] MEDS: SIMETHICONE 80 MG CHEW PO SCH (08:24)
--- NOTE | 2022-03-03 08:48 | Obstetrical Progress Note ---
Date of Service March 03, 2022 Assessment & Plan (1) Encounter for care and examination after delivery: Day 4 status post primary Caesarean section with noted uterine rupture. Patient reports that she is doing much better today. Patient has been unable to void and had a catheter removed again this morning at 4:30 a.m. and will await void. Patient is aware that if she is unable to void that she will need to go home with a Franklin catheter with leg bag. decision healing well and patient is noted to have improved discomfort and is ambulating better. Patient is passing gas but has not had a bowel movement we discussed bowel care regimen. Subjective Ambulation: ambulating normally Voiding: no voiding problems Passing Gas:: Yes Diet Tolerance:: regular diet Lochia:: Moderate Feeding Type:: breast feeding Physical Exam Gastrointestinal (Abdomen) Inspection/Auscultation: abdomen normal to inspection; abdomen not distended Percussion/Palpation: abdomen soft; abdomen nontender, no guarding and abdomen not rigid Incision C/D/I Genitourinary OB Exam Abdomen: + fundal height Fundus: + firm and + relation to umbilicus (Below); not tender or not boggy Results & Data ([facility]) Vital Signs (Past 12 Hours) Vital Signs Temp Pulse Resp BP Pulse Ox 03/03/22 08:00 36.4 C L 79 20 104/69 97 03/02/22 23:00 36.5 C 89 16 102/67
--- NOTE | 2022-03-08 07:47 | Discharge Summary ---
Date of Service March 08, 2022 Admission HPI Per Admitting Provider 36 y/o 1 at 40 2/7 wga presents w/ c/o LOF since 11AM. +FM and occ ctx, denies VB PNI: AMA Past [employer] Hx: G1 q25d cycles 07/2021 neg cotest, hx colpo 10 yrs ago denies hx STIs Admission Exam (Per Admitting) Genitourinary OB Exam Abdomen: + vertex (confirmed by bsus) and + estimated weight (7- 8lbs) Manual OB Exam: + amniotic fluid (amnisure positive) OB Exam Abdomen: + vertex (confirmed by bsus) and + estimated weight (7- 8lbs) Manual OB Exam: + cervical dilation 1 cm, + cervical effacement 50%, + station -2 and + amniotic fluid (amnisure positive) OB Exam Monitor Tracing: + external FHT monitor used, + external uterine monitor used (irreg ctx) and + category I (125/mod/+accel/-decel) Discharge Data Consultations 02/26/22 15:28 Consult Anesthesiology Stat Procedures Performed Operation Date: 02/27/22 12:30 Actual Procedures p Primary Section in LD with result of live female child at 1301, Repair of Uterine Rupture - Sharon Bradley MD Hospital Course (1) Uterine rupture during labor: (2) Urinary retention: (3) Encounter for care and examination after delivery: 36-year-old G1 at 40 weeks and 3 days presented 1 day ago with complaints of spontaneous rupture of membranes. She was expectantly managed for approximately 4 hours however did not make any cervical change and so was started on Pitocin. She received an epidural for pain control and continue to progress with Pitocin augmentation until approximately 9 cm at which point decels were noted. Pitocin was discontinued and fetus recovered, Pitocin was restarted however had to be discontinued again due to another decel. Despite Pitocin discontinuation, patient continued to progress until she was 10 cm and desired push. The patient had good progress in her pushing and was able to push the head until +2 station. It was difficult for her to make progress beyond +2 station and so she tried pushing in a variety of positions. At one point during repositioning, she did become painful again but gained some relief with pushing epidural button. Category 2 tracing was noted throughout pushing however had appropriate recovery and still had moderate variability throughout this time as well. The patient pushed for approximately 3 hours in total, unable to push beyond +2 station and was becoming very tired. She was counseled regarding vacuum attempt due to maternal exhaustion and desire to proceed after informed consent was obtained. There was good progress during her pushing efforts and vacuum pulls, however head could not be delivered before 3 pop offs and so vacuum was discontinued. heart rate was unchanged during this time. She was counseled for recommendation for section at this time, consents reviewed and signed after all questions answered to apparent satisfaction. Uterine rupture was identified intraoperatively, see operative report for details. Uterine rupture was able to be repaired and uterus remained in situ, bladder was noted to be intact. Postop day 1 was complicated by leg pain and bilateral doppler was negative for DVT. Hemoglobin remained stable throughout the course. Postoperative course was complicated by urinary retention for which TOVs were performed each morning but failed and harvey was replaced. On POD4 she was able to successfully void and was also meeting all other postop milestones and was stable for discharge. She was counseled extensively regarding the procedure, anticipated outcomes as well as prognosis during course. She is scheduled for 1 wk f/u. Coding Level of Care Code None Diagnoses Uterine rupture during labor O71.1 Urinary retention R33.9 Encounter for care and examination after delivery Z39.2
== END 2022-03-03 14:07 | disposition home or self-care (01) | DRG 786 ==
LOC: OPB 13:36 → 4S1 13:39 → 4E2 02-27 22:28
DX: M79.606 Pain in leg, unspecified; O62.1 Secondary uterine inertia; Z88.1 Allergy status to other antibiotic agents; O42.92 Full-term premature rupture of membranes, unspecified as to length of time between rupture and onset of labor; O48.0 Post-term pregnancy; Z3A.40 40 weeks gestation of pregnancy; Z88.2 Allergy status to sulfonamides; O75.81 Maternal exhaustion complicating labor and delivery; O71.1 Rupture of uterus during labor; O26.893 Other specified pregnancy related conditions, third trimester; O66.5 Attempted application of vacuum extractor and forceps; O76 Abnormality in fetal heart rate and rhythm complicating labor and delivery; Z37.0 Single live birth; R33.9 Retention of urine, unspecified